=== PATIENT | female | born 1995 | race Caucasian/White ===

== ENCOUNTER 2017-10-21 16:16 | Emergency (ER) | payer SELFPAY ==
[~2017-10-21] VITALS: Ht 162.6 cm; Wt 65.8 kg
[2017-10-21 16:40] VITALS: BP 123/69
--- NOTE | 2017-10-21 17:14 | PHYS DOC ---
Past Medical History Past Medical History: No Pertinent History Past Surgical History: Other Additional Past Surgical Histo: BILATERAL RIB CARTLIGE REMOVAL Alcohol Use: None Drug Use: None Adult General Chief Complaint Chief Complaint: HAND PROBLEM [facility] HPI Patient is a 22 year old female who presents with an injury to the left hand that occurred approximately 2 weeks ago. She states that the injury happened at work but they informed her that they would not treat it because it was past the two-week window. She states that she was going one direction with a cart and another employee was coming in the opposite direction and a struck jamming her finger. She is claiming pain in her fourth and fifth fingers that extends down into her hand. She has it wrapped with tape. Review of Systems Review of Systems Constitutional: Denies fever or chills [] Respiratory: Denies cough or shortness of breath [] Cardiovascular: No additional information not addressed in HPI [] Musculoskeletal: See history of present illness Integument: Denies rash or skin lesions [] Neurologic: Denies headache, focal weakness or sensory changes [] Endocrine: Denies polyuria or polydipsia [] All other systems were reviewed and found to be within normal limits, except as documented in this note. Allergies Allergies Allergies Coded Allergies Type Severity Reaction Last Updated Verified No Known Drug Allergies 07/01/16 No Physical Exam Physical Exam Constitutional: Well developed, well nourished, no acute distress, non-toxic appearance. [] Cardiovascular:Heart rate regular rhythm, no murmur [] Lungs & Thorax: Bilateral breath sounds clear to auscultation [] Skin: Warm, dry, no erythema, no rash. [] Extremities: Tenderness with palpation to left fourth and fifth digit, the patient says that the fifth digit is much more painful, there is no erythema or ecchymosis, pulses and sensation are intact, range of motion is intact. Neurologic: Alert and oriented X 3, normal motor function, normal sensory function, no focal deficits noted. [] Psychologic: Affect normal, judgement normal, mood normal. [] Current Patient Data Vital Signs Vital Signs Date Time Temp Pulse Resp B/P (MAP) Pulse Ox O2 Delivery O2 Flow Rate FiO2 10/21/17 16:40 98.2 81 16 99 Room Air 98.2 EKG EKG [] Radiology/Procedures Radiology/Procedures [] PATIENT: CHICO HERNANDEZ ACCOUNT: [id number] : 1995 LOCATION: ER AGE: 22 SEX: F EXAM STATUS: REG ER ORD. PHYSICIAN: GAYLE PATINO APRN REASON: jammed at work two weeks ago with continued pain PROCEDURE: HAND LEFT 3V Three-view left hand radiographs 10/21/2017 Clinical history: Injury to left hand 2 weeks ago with pain. PA, lateral and oblique digital radiographs of the left hand were obtained. No fracture or dislocation of the left hand is seen. No radiopaque foreign body is noted. Impression: No fracture or dislocation of the left hand is seen. DICTATED and SIGNED BY: PAULETTE MACHUCA MD DATE: 10/21/171706 CC: GAYLE PATINO APRN; UNKNOWN PCP NAME ~ Course & Med Decision Making Course & Med Decision Making Pertinent Labs and Imaging studies reviewed. (See chart for details) []1. Contusion of hand The patient was placed in a wrist splint and is to follow-up with orthopedics. She asked for narcotic pain medication but that was denied. She may return to the ED for any worsening in her condition. RICE the affected area. Dragon Disclaimer Dragon Disclaimer This electronic medical record was generated, in whole or in part, using a voice recognition dictation system. Departure Departure Referrals: UNKNOWN PCP NAME (PCP) GAYLE PATINO APRN Oct 21, 2017 17:14
== END 2017-10-21 17:40 | disposition home or self-care (01) ==
LOC: ER 16:16
DX: S60.222A Contusion of left hand, initial encounter (principal); W23.0XXA Caught, crushed, jammed, or pinched between moving objects, initial encounter; Y93.89 Activity, other specified; Y92.69 Other specified industrial and construction area as the place of occurrence of the external cause; Y99.8 Other external cause status
CPT/HCPCS: 29125; 73130; 99284-25

== ENCOUNTER 2018-02-27 20:27 | Emergency (ER) | payer OTHER ==
[2018-02-27 21:29] LABS: URINE HCG POC HCG NEGATIVE (Negative)
[2018-02-27 21:50] LABS: ADD MAN DIFF? NO
[2018-02-27 21:53] LABS: BASO # 0.1 x10^3/uL (0.0-0.2); BASO % 1 % (0-3); EOS # 0.1 x10^3/uL (0.0-0.7); EOS % 1 % (0-3); HEMOGLOBIN 15.2 g/dL (12.0-15.5); LYMPH # 3.2 x10^3/uL (1.0-4.8); LYMPH % 35 % (24-48); MEAN CORPUSCULAR HEMOGLOBIN 32 pg (25-35); MEAN CORPUSCULAR HGB CONC 35 g/dL (31-37); MEAN CORPUSCULAR VOLUME 91 fL (79-100); MONO # 0.4 x10^3/uL (0.0-1.1); MONO % 5 % (0-9); NEUT # 5.5 x10^3uL (1.8-7.7); NEUT % 59 % (31-73); PLATELET COUNT 202 x10^3/uL (140-400); RED BLOOD COUNT 4.74 x10^6/uL (3.50-5.40); RED CELL DISTRIBUTION WIDTH 13.5 % (11.5-14.5); WHITE BLOOD COUNT 9.4 x10^3/uL (4.0-11.0)
[2018-02-27] MEDS: ALPRAZolam 0.5 MG TABLET PO (21:53)
[2018-02-27] MEDS: ONDANSETRON ODT 4 MG TAB.RAPDIS. PO (21:53)
[2018-02-27 21:56] LABS: BILIRUBIN,URINE NEGATIVE (NEG); CLARITY,URINE CLEAR; COLOR,URINE YELLOW; GLUCOSE,URINE NEGATIVE (NEG); NITRITE,URINE NEGATIVE (NEG); PH,URINE 5.5; PROTEIN,URINE NEGATIVE (NEG-TRACE)
[2018-02-27] MEDS: IV NORMAL SALINE 1000ML BAG 1,000 ML IV (21:59)
[2018-02-27 22:00] LABS: BACTERIA,URINE FEW /HPF (0-FEW); RBC,URINE 0 /HPF (0-2); SQUAMOUS EPITHELIAL CELL,UR MOD /LPF; WBC,URINE 0 /HPF (0-4)
[2018-02-27 22:07] LABS: ANION GAP 9 (6-14); BLOOD UREA NITROGEN 13 mg/dL (7-20); BUN/CREATININE RATIO 16 (6-20); CALCIUM 9.6 mg/dL (8.5-10.1); CARBON DIOXIDE 26 mmol/L (21-32); CHLORIDE 105 mmol/L (98-107); CREATININE 0.8 mg/dL (0.6-1.0); GFR 90.5; GLUCOSE 90 mg/dL (70-99); POTASSIUM 3.4 mmol/L (3.5-5.1); SODIUM 140 mmol/L (136-145)
[2018-02-27 22:24] LABS: ALBUMIN 4.1 g/dL (3.4-5.0); TOTAL PROTEIN 7.6 g/dL (6.4-8.2)
[2018-02-27 22:25] LABS: ALBUMIN/GLOBULIN RATIO 1.2 (1.0-1.7); ALK PHOS 83 U/L (46-116); ALT (SGPT) 58 U/L (14-59); AST (SGOT) 29 U/L (15-37); LIPASE 105 U/L (73-393); TOTAL BILIRUBIN 0.6 mg/dL (0.2-1.0)
[2018-02-27] MEDS ORDERED: CONTRAST GIVEN MC (22:30)
[2018-02-27] MEDS: IOHEXOL 300 MG/ML 100ML VIAL. IV (22:32)
== END 2018-02-28 00:01 | disposition home or self-care (01) ==
LOC: ER 02-28 00:01
DX: N83.201 Unspecified ovarian cyst, right side (principal); K59.00 Constipation, unspecified; F41.9 Anxiety disorder, unspecified; G43.909 Migraine, unspecified, not intractable, without status migrainosus; F17.210 Nicotine dependence, cigarettes, uncomplicated
CPT/HCPCS: 36415; 74177; 80053; 81001; 81025; 83690; 85025; 99285-25; J7030; Q0162; Q9967

== ENCOUNTER 2018-09-17 11:53 | Emergency (ER) | payer SELFPAY ==
[~2018-09-17] VITALS: Ht 162.6 cm; Wt 61.2 kg
[~2018-09-17 11:53] MED LIST: ONDA4TAB10 SL
[2018-09-17] MEDS ORDERED: NAPROXEN 500 MG TABLET PO STA (12:32)
[2018-09-17 12:45] VITALS: BP 130/59
[2018-09-17] MEDS ORDERED: HYDROcodone/APAP 5/325MG 1 TAB TABLET PO ONE (12:45)
--- NOTE | 2018-09-17 13:10 | RAD ---
History: Ankle pain and swelling after fall. Comparison: None. Findings: AP, lateral, and oblique views of the right ankle. Lateral ankle soft tissue swelling is seen. No acute fracture or dislocation is identified. Impression: 1. No acute osseous traumatic injury identified. 2. Lateral ankle soft tissue swelling. Electronically signed by: Stuart Nicholas MD (09/17/2018 1:07 PM) [facility]
[2018-09-17] MEDS ORDERED: NAPR-514 PO (13:41)
--- NOTE | 2018-09-17 13:42 | PHYS DOC ---
Past Medical History Past Medical History: No Pertinent History, Migraines, Other Additional Past Medical Histor: SCOLIOSIS Past Surgical History: Other Additional Past Surgical Histo: RIB SURGERY Alcohol Use: Occasionally Drug Use: None, Marijuana Adult General Chief Complaint Chief Complaint: ANKLE PROBLEM HPI HPI Patient is a 23 year old female who presents with 10 out of 10 right lateral ankle pain that began today after she tripped on carpet and fell. Patient denies any loss of consciousness. Patient states the pain is worse on touching the right lateral ankle as well as weightbearing. Describes the pain as sharp and constant. Review of Systems Review of Systems Constitutional: Denies fever or chills [] Musculoskeletal: Reports right lateral ankle pain Integument: Denies rash or skin lesions [] Neurologic: Denies headache, focal weakness or sensory changes [] All other systems were reviewed and found to be within normal limits, except as documented in this note. Current Medications Current Medications Current Medications Medications (Trade) Dose Ordered Sig/Brianna Start Time Stop Time Status Last Admin Dose Admin Acetaminophen/ Hydrocodone Bitart (Lortab 5/325) 1 tab 1X ONCE 09/17/18 12:45 09/17/18 12:46 DC 09/17/18 12:39 1 TAB Naproxen (Naprosyn) 500 mg 1X STAT 09/17/18 12:32 09/17/18 12:34 DC 09/17/18 12:32 500 MG Allergies Allergies Allergies Coded Allergies Type Severity Reaction Last Updated Verified No Known Drug Allergies 07/01/16 No Physical Exam Physical Exam Constitutional: Well developed, well nourished, no acute distress, non-toxic appearance. [] Skin: Warm, dry, no erythema, no rash. [] Back: No tenderness, no CVA tenderness. [] Extremities: Right ankle lateral aspect with mild soft tissue swelling, no ecchymosis. Tenderness on palpation of the right lateral ankle. +2 right radial pulse. Good passive range of motion to the right ankle and foot. Cap refill less than 2 seconds to the right toes. Neurologic: Alert and oriented X 3, normal motor function, normal sensory function, no focal deficits noted. [] Psychologic: Affect normal, judgement normal, mood normal. [] Current Patient Data Vital Signs Vital Signs Date Time Temp Pulse Resp B/P (MAP) Pulse Ox O2 Delivery O2 Flow Rate FiO2 09/17/18 12:45 97.8 105 16 130/59 (82) 99 Room Air 97.8 EKG EKG [] Radiology/Procedures Radiology/Procedures []PROCEDURE: ANKLE RIGHT 3V History: Ankle pain and swelling after fall. Comparison: None. Findings: AP, lateral, and oblique views of the right ankle. Lateral ankle soft tissue swelling is seen. No acute fracture or dislocation is identified. Impression: 1. No acute osseous traumatic injury identified. 2. Lateral ankle soft tissue swelling. Electronically signed by: Stuart Ceja MD (09/17/2018 1:07 PM) [facility] DICTATED and SIGNED BY: STUART CEJA MD DATE: 09/17/18 9480 Course & Med Decision Making Course & Med Decision Making Pertinent Labs and Imaging studies reviewed. (See chart for details) This is a 23-year-old female patient presenting to the ED today with right lateral ankle pain after falling. Right ankle x-rays interpreted by radiologist are negative for any acute findings, neurovascular exam is intact. Air cast applied to the right ankle. Ice elevation encouraged. Naproxen for pain. Follow- up with orthopedic doctor in one week if symptoms continue. Dragon Disclaimer Dragon Disclaimer This electronic medical record was generated, in whole or in part, using a voice recognition dictation system. Departure Departure Impression: Primary Impression: Right ankle sprain Additional Impression: Fall from standing Disposition: 01 HOME, SELF-CARE Condition: STABLE Referrals: UNKNOWN PCP NAME (PCP) UYEN DUARTE MD Follow-up in 1-2 weeks Patient Instructions: Ankle Sprain Additional Instructions: You were seen for right ankle sprain. Ice elevate the extremity. Take the prescribed medications as needed for pain. Follow-up with your own doctor the provided orthopedic doctor in 1-2 weeks. Scripts Naproxen (NAPROXEN) 500 Mg Tablet 1 TAB PO BID, #30 TAB 0 Refills Prov: LEXISUEDAVIE JOHNSON 09/17/18 Problem Qualifiers Primary Impression: Right ankle sprain Encounter type: initial encounter Involved ligament of ankle: unspecified ligament Qualified Codes: S93.401A - Sprain of unspecified ligament of right ankle, initial encounter Additional Impression: Fall from standing Encounter type: initial encounter Qualified Codes: W19.XXXA - Unspecified fall, initial encounter LEXIDAVIE ROGERS ELIZABETH Sep 17, 2018 13:42
== END 2018-09-17 14:13 | disposition home or self-care (01) ==
LOC: ER 11:53
DX: S93.401A Sprain of unspecified ligament of right ankle, initial encounter (principal); G43.909 Migraine, unspecified, not intractable, without status migrainosus; W18.09XA Striking against other object with subsequent fall, initial encounter; Y93.89 Activity, other specified; Y92.89 Other specified places as the place of occurrence of the external cause; Y99.8 Other external cause status
CPT/HCPCS: 29515; 73610; 99284; L4350

== ENCOUNTER 2020-09-14 19:48 | Emergency (ER) | payer OTHER ==
[~2020-09-14] VITALS: Ht 162.6 cm; Wt 67.2 kg
[~2020-09-14 19:48] MED LIST changes: +NAPR-514 PO
[2020-09-14 20:14] LABS: BILIRUBIN,URINE SMALL (NEG); CLARITY,URINE CLEAR; COLOR,URINE AMBER; NITRITE,URINE NEGATIVE (NEG); PH,URINE 5.5 (<5.0-8.0); PROTEIN,URINE 30 mg/dL (NEG-TRACE)
[2020-09-14 20:29] LABS: BACTERIA,URINE MODERATE /HPF (0-FEW)
[2020-09-14] MEDS ORDERED: PHEN-318 PO (20:44)
[2020-09-14] MEDS ORDERED: CEPH500C PO (20:44)
--- NOTE | 2020-09-14 20:45 | ED.ADGEN ---
Past Medical History Past Medical History: Migraines, Other Additional Past Medical Histor: SCOLIOSIS Past Surgical History: Other Additional Past Surgical Histo: RIB SURGERY Smoking Status: Never Smoker Alcohol Use: Occasionally Drug Use: None, Marijuana General Adult EDM: Chief Complaint: URINARY FREQUENCY HPI: HPI: Patient is a 25 year old female who presents to the emergency room with c omplaints of pain with urination and pelvic pain after urinating for the last 4 to 5 days. She denies any irregular vaginal odor, vaginal discharge, vaginal bleeding, or concerns of a sexually transmitted infection. 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 She denies any fever, nausea, vomiting, diarrhea, back pain, body aches, fatigue, cough, or shortness of breath. She denies any blood in her urine. The patient currently rates her pain a 4 out of 10 on the pain scale, she denies any alleviating factors, the pain is worse with urination. Review of Systems: Review of Systems: Complete ROS is negative unless otherwise noted in HPI. Allergies: Allergies: Allergies Coded Allergies Type Severity Reaction Last Updated Verified No Known Drug Allergies 07/01/16 No Physical Exam: PE: See Above Constitutional: Well developed, well nourished, no acute distress, non-toxic appearance. [] HENT: Normocephalic, atraumatic, bilateral external ears normal, nose normal. [] Eyes: PERRLA, EOMI, conjunctiva normal, no discharge. [] Neck: Normal range of motion, no stridor. [] Cardiovascular:Heart rate regular rhythm Lungs & Thorax: Respirations even and unlabored, no retractions, no respiratory distress Abdomen: soft, no tenderness Back: Nontender, no CVA tenderness. Skin: Warm, dry, no erythema, no rash. [] Extremities: No cyanosis, ROM intact, no edema. [] Neurologic: Alert and oriented X 3, no focal deficits noted. [] Psychologic: Affect normal, judgement normal, mood normal. [] Current Patient Data: Labs: Laboratory Tests Test 09/14/20 19:51 09/14/20 20:05 Urine Collection Type Unknown Urine Color Sandy Urine Clarity Clear Urine pH 5.5 (<5.0-8.0) Urine Specific Huffman >=1.030 (1.000-1.030) Urine Protein 30 mg/dL (NEG-TRACE) Urine Glucose (UA) Negative mg/dL (NEG) Urine Ketones (Stick) 15 mg/dL (NEG) Urine Blood Small (NEG) Urine Nitrite Negative (NEG) Urine Bilirubin Small (NEG) Urine Urobilinogen Dipstick 1.0 mg/dL (0.2 mg/dL) Urine Leukocyte Esterase Negative (NEG) Urine RBC 1-2 /HPF (0-2) Urine WBC 1-4 /HPF (0-4) Urine Squamous Epithelial Cells Many /LPF Urine Bacteria Moderate /HPF (0-FEW) Urine Mucus Marked /LPF POC Urine HCG, Qualitative Hcg negative (Negative) Vital Signs: Vital Signs Date Time Temp Pulse Resp B/P (MAP) Pulse Ox O2 Delivery O2 Flow Rate FiO2 09/14/20 19:50 98.3 109 18 115/85 (95) 96 Room Air 98.3 EKG: EKG: [] Heart Score: Risk Factors: Risk Factors: DM, Current or recent (<one month) smoker, HTN, HLP, family history of CAD, obesity. Risk Scores: Score 0 - 3: 2.5% MACE over next 6 weeks - Discharge Home Score 4 - 6: 20.3% MACE over next 6 weeks - Admit for Clinical Observation Score 7 - 10: 72.7% MACE over next 6 weeks - Early Invasive Strategies Radiology/Procedures: Radiology/Procedures: [] Course & Med Decision Making: Course & Med Decision Making Pertinent Labs and Imaging studies reviewed. (See chart for details) [] Dragon Disclaimer: Dragon Disclaimer: This electronic medical record was generated, in whole or in part, using a voice recognition dictation system. Departure Departure Impression: Primary Impression: Urinary tract infection Additional Impression: Dysuria Disposition: 01 DC HOME SELF CARE/HOMELESS Condition: STABLE Referrals: UNKNOWN PCP NAME (PCP) Patient Instructions: Urinary Tract Infection, [id number] Additional Instructions: Fill prescription(s) and use as directed. Avoid bladder irritants such as caffeine, carbonation, and spicy foods. Increase clear fluids. Follow up with your primary care doctor in 1 to 2 days, return to the ER if symptoms worsen or fever develops. Scripts Phenazopyridine Hcl (PYRIDIUM) 200 Mg Tablet 1 TAB PO TID for urinary discomfort for 3 Days, #9 TAB 0 Refills Prov: NAOMY LOPEZ APRN 09/14/20 Cephalexin (CEPHALEXIN) 500 Mg Capsule 1 CAP PO BID for 7 Days, #14 CAP 0 Refills Prov: NAOMY LOPEZ APRN 09/14/20 Problem Qualifiers Primary Impression: Urinary tract infection Urinary tract infection type: acute cystitis Hematuria presence: without hematuria Qualified Codes: N30.00 - Acute cystitis without hematuria NAOMY LOPEZ APRN Sep 14, 2020 20:45
== END 2020-09-14 20:55 | disposition home or self-care (01) ==
LOC: ER 19:48
DX: N30.00 Acute cystitis without hematuria (principal); R30.0 Dysuria; R10.2 Pelvic and perineal pain
CPT/HCPCS: 81001; 81025; 87086; 99283